=== PATIENT | male | born 1955 | race Caucasian/White ===

== ENCOUNTER 2018-12-05 20:54 | Inpatient (IN) | payer OTHER, MEDICAID ==
[~2018-12-05] VITALS: Ht 185.4 cm; Wt 127.0 kg
[2018-12-05 20:55] VITALS: BP 157/68
[2018-12-05 22:28] LABS: BASOPHILS # (AUTO) 0.1 K/uL (0.00-0.22); BASOPHILS % (AUTO) 1.3 % (0.0-2.0); EOSINOPHILS # (AUTO) 0.3 K/uL (0-0.4); EOSINOPHILS % (AUTO) 5.6 % (0.0-4.0); LYMPHOCYTES # (AUTO) 0.6 K/uL (2.0-11.5); LYMPHOCYTES % (AUTO) 10.3 % (20.5-51.1); MEAN CORPUSCULAR HEMOGLOBIN 26 pg (27-31); MEAN CORPUSCULAR HGB CONC 32 g/dL (33-37); MEAN CORPUSCULAR VOLUME 81.3 fL (80-94); MONOCYTES # (AUTO) 0.6 K/uL (0.8-1.0); MONOCYTES % (AUTO) 9.6 % (1.7-9.3); NEUTROPHILS # (AUTO) 4.3 K/uL (1.8-7.7); NEUTROPHILS % (AUTO) 73.2 % (42.2-75.2); PLATELET COUNT (AUTO) 220 K/uL (140-450); RED BLOOD CELL COUNT(AUTO) 3.07 MIL/uL (4.20-6.10); RED CELL DISTRIBUTION WIDTH 17.7 % (11.6-13.7); WHITE BLOOD COUNT (AUTO) 5.8 K/uL (4.8-10.8)
[2018-12-05 22:40] LABS: ANION GAP 5.9 (8-16); CARBON DIOXIDE 35.1 mmol/L (21-32); CREATININE 2.2 mg/dL (0.7-1.3)
[2018-12-05 22:43] LABS: APPEARANCE,URINE CLEAR (CLEAR); BILIRUBIN,URINE NEGATIVE (NEGATIVE); BLOOD, URINE 2+ (NEGATIVE); COLOR,URINE YELLOW (YELLOW); LEUKOCYTE ESTERASE ,URINE NEGATIVE (NEGATIVE); NITRITE, URINE NEGATIVE (NEGATIVE); UGLUCOSE 1+ (NEGATIVE)
[2018-12-05 22:46] LABS: ALBUMIN 2.4 g/dL (3.4-5.0); TOTAL BILIRUBIN 0.4 mg/dL (0.0-1.0)
[2018-12-05 23:26] LABS: RBC,URINE 20-50 /HPF (0-5)
[2018-12-05 23:28] LABS: FINE GRANULAR CASTS,URINE 0-10 /LPF (None Seen)
[2018-12-06] MEDS ORDERED: ALBUTEROL SULFATE/IPRATROPIU 3 ML SOL IH PRN (00:15)
[2018-12-06] MEDS ORDERED: ONDANSETRON 4 MG/2 ML VIAL IM/IVP PRN (00:20)
[2018-12-06] MEDS ORDERED: ACETAMINOPHEN 325 MG TAB PO PRN ×2 (00:20→02:35)
[2018-12-06] MEDS ORDERED: HYDROcodone/APAP 5/325 MG 1 TAB TAB PO PRN (00:20)
[2018-12-06] MEDS ORDERED: FAMOTIDINE 20 MG/2 ML VIAL IV PRN (00:20)
[2018-12-06] MEDS ORDERED: DOCUSATE SODIUM 100 MG GELCAP PO PRN (00:20)
[2018-12-06] MEDS ORDERED: FUROSEMIDE 40 MG/4 ML VIAL IVP SCH (01:00)
[2018-12-06] MEDS: PIPERACILLIN/TAZOBACTAM 3.375 GM in DEXTROSE 5% 50 ML IV SCH ×2 (01:37→06:55)
[2018-12-06] MEDS ORDERED: PIPERACILLIN/TAZOBACTAM 3.375 GM VIAL IV ONE ×2 (01:41→07:05)
[2018-12-06 01:46] LABS: PROTHROMBIN TIME 10.5 secs (10.8-13.4)
[2018-12-06 01:56] LABS: CHOL/HDL RATIO 3.8 (1-4.5); FREE T4 (FREE THYROXINE) 1.01 ng/dL (0.76-1.46); MAGNESIUM 1.9 mg/dL (1.8-2.4); PHOSPHORUS 3.5 mg/dL (2.5-4.9); THYROID STIMULATING HORMONE 9.26 uIU/mL (0.34-3.74)
[2018-12-06 02:00] VITALS: BP 151/71
[2018-12-06] MEDS ORDERED: BISA-246 RC (02:24)
[2018-12-06] MEDS ORDERED: ACET-2619 PO (02:24)
[2018-12-06] MEDS ORDERED: ALBU3SOL83 IH (02:24)
[2018-12-06] MEDS ORDERED: GLUC1VIA4 IM (02:24)
[2018-12-06] MEDS ORDERED: GABA300C PO (02:24)
[2018-12-06] MEDS ORDERED: ENAL-197 PO (02:24)
[2018-12-06] MEDS ORDERED: LORA-476 PO (02:24)
[2018-12-06] MEDS ORDERED: LACT10SO1 PO (02:24)
[2018-12-06] MEDS ORDERED: VITD1000 PO (02:24)
[2018-12-06] MEDS ORDERED: HYDR-1098 PO (02:24)
[2018-12-06] MEDS ORDERED: CARV12.5 PO (02:24)
[2018-12-06] MEDS ORDERED: MELA5TAB6 PO (02:24)
[2018-12-06] MEDS ORDERED: PAX10 PO (02:24)
[2018-12-06] MEDS ORDERED: FERR325E14 PO (02:24)
[2018-12-06] MEDS ORDERED: ASPI-1718 PO (02:24)
[2018-12-06] MEDS ORDERED: LOSA25TA43 PO (02:24)
[2018-12-06] MEDS ORDERED: TRAM50TA1 PO (02:24)
[2018-12-06] MEDS ORDERED: BUME1TAB92 PO (02:24)
[2018-12-06] MEDS ORDERED: DOCU-299 PO (02:24)
[2018-12-06] MEDS: NACL 0.9% 1,000 ML IV SCH ×2 (02:33→23:42)
[2018-12-06] MEDS ORDERED: BISACODYL 10 MG SUPP RC PRN (02:35)
[2018-12-06] MEDS ORDERED: MELATONIN 3 MG TAB PO PRN (02:35)
[2018-12-06] MEDS ORDERED: traMADol 50 MG TAB PO PRN (02:35)
[2018-12-06] MEDS ORDERED: LORazepam 1 MG TAB PO PRN (02:35)
[2018-12-06] MEDS ORDERED: LACTULOSE 20 GM/30 ML UDC PO PRN (02:35)
[2018-12-06] MEDS ORDERED: DEXTROSE 50% 50 ML SYR IVP PRN (03:00)
[2018-12-06] MEDS ORDERED: GLUCAGON 1 MG VIAL IVP PRN (03:00)
[2018-12-06] MEDS ORDERED: methylPREDNISolone SS 125 MG/2 ML VIAL IVP SCH (03:15)
[2018-12-06] MEDS ORDERED: MEDICATION REC. PHARMACY CONS. 1 EA MISC MC PRN (03:35)
[2018-12-06 04:00] VITALS: BP 174/77
[2018-12-06 05:22] LABS: BASOPHILS % (AUTO) 0.6 % (0.0-2.0); EOSINOPHILS # (AUTO) 0.2 K/uL (0-0.4); EOSINOPHILS % (AUTO) 4.6 % (0.0-4.0); HEMATOCRIT 24.1 % (36-52); HEMOGLOBIN 7.7 g/dL (12.0-18.0); LYMPHOCYTES # (AUTO) 0.7 K/uL (2.0-11.5); LYMPHOCYTES % (AUTO) 15.2 % (20.5-51.1); MEAN CORPUSCULAR HEMOGLOBIN 26 pg (27-31); MEAN CORPUSCULAR HGB CONC 32 g/dL (33-37); MEAN CORPUSCULAR VOLUME 81.2 fL (80-94); MONOCYTES # (AUTO) 0.5 K/uL (0.8-1.0); NEUTROPHILS # (AUTO) 3.4 K/uL (1.8-7.7); NEUTROPHILS % (AUTO) 68.6 % (42.2-75.2); PLATELET COUNT (AUTO) 207 K/uL (140-450); RED BLOOD CELL COUNT(AUTO) 2.96 MIL/uL (4.20-6.10); RED CELL DISTRIBUTION WIDTH 18.4 % (11.6-13.7); WHITE BLOOD COUNT (AUTO) 4.9 K/uL (4.8-10.8)
[2018-12-06] MEDS: hydrALAZINE 20 MG/ML VIAL IVP PRN ×2 (05:39→13:41)
[2018-12-06] MEDS: ALBUTEROL SULFATE/IPRATROPIU 3 ML SOL IH SCH ×3 (06:41→19:25)
[2018-12-06 07:00] LABS: ANION GAP 6.7 (8-16); CARBON DIOXIDE 36.3 mmol/L (21-32); CREATININE 2.2 mg/dL (0.7-1.3)
[2018-12-06] MEDS: BLOOD GLUCOSE MONITORING 1 DEV DEV FS SCH ×4 (07:43→20:39)
[2018-12-06 08:00] VITALS: BP 149/80
[2018-12-06] MEDS: PARoxetine 10 MG TAB PO SCH (09:42)
[2018-12-06] MEDS: CHOLECALCIFEROL 1,000 IU TAB PO SCH (09:42)
[2018-12-06] MEDS: LACTOBACILLUS RHAMNOSUS GG 1 EACH CAP PO SCH (09:42)
[2018-12-06] MEDS: BUMETANIDE 1 MG TAB PO SCH ×2 (09:43→20:35)
[2018-12-06] MEDS: FERROUS SULFATE 325 MG TABEC PO SCH ×3 (09:43→16:53)
[2018-12-06] MEDS: CARVEDILOL 12.5 MG TAB PO SCH ×2 (09:44→20:36)
[2018-12-06] MEDS: DOCUSATE SODIUM 100 MG GELCAP PO SCH ×2 (09:44→20:42)
[2018-12-06] MEDS: methylPREDNISolone SS 40 MG/ML VIAL IVP SCH (10:30)
[2018-12-06 12:00] VITALS: BP 175/71
[2018-12-06] MEDS: BUDESONIDE 0.5 MG/2 ML NEBU INH SCH ×2 (13:00→19:27)
[2018-12-06] MEDS: INSULIN LISPRO SLIDING SCALE 100 UNITS/ML VIAL SUBQ PRN ×3 (13:06→20:40)
[2018-12-06 16:00] VITALS: BP 165/74
[2018-12-06] MEDS ORDERED: FUROSEMIDE 100 MG in DEXTROSE 5% 100 ML IV SCH ×2 (17:30→21:30)
[2018-12-06 20:00] VITALS: BP 145/51
[2018-12-06] MEDS: GABAPENTIN 300 MG CAP PO SCH (20:36)
[2018-12-06] MEDS: LORazepam 2 MG/ML VIAL IM/IVP PRN (20:50)
[2018-12-07 00:40] VITALS: BP 142/63
[2018-12-07] MEDS ORDERED: FUROSEMIDE 100 MG/10 ML VIAL ONE (01:15)
[2018-12-07 04:00] VITALS: BP 127/59
[2018-12-07] MEDS: BLOOD GLUCOSE MONITORING 1 DEV DEV FS SCH ×4 (05:28→20:16)
[2018-12-07 05:45] LABS: BASOPHILS % (AUTO) 0.1 % (0.0-2.0); HEMATOCRIT 23.4 % (36-52); HEMOGLOBIN 7.4 g/dL (12.0-18.0); LYMPHOCYTES # (AUTO) 0.6 K/uL (2.0-11.5); LYMPHOCYTES % (AUTO) 10.3 % (20.5-51.1); MEAN CORPUSCULAR HEMOGLOBIN 26 pg (27-31); MEAN CORPUSCULAR HGB CONC 32 g/dL (33-37); MEAN CORPUSCULAR VOLUME 81.3 fL (80-94); MONOCYTES # (AUTO) 0.7 K/uL (0.8-1.0); MONOCYTES % (AUTO) 12.1 % (1.7-9.3); NEUTROPHILS # (AUTO) 4.4 K/uL (1.8-7.7); NEUTROPHILS % (AUTO) 77.5 % (42.2-75.2); PLATELET COUNT (AUTO) 214 K/uL (140-450); RED BLOOD CELL COUNT(AUTO) 2.88 MIL/uL (4.20-6.10); RED CELL DISTRIBUTION WIDTH 18.9 % (11.6-13.7); WHITE BLOOD COUNT (AUTO) 5.7 K/uL (4.8-10.8)
[2018-12-07 06:00] LABS: ANION GAP 5.8 (8-16); CARBON DIOXIDE 33.9 mmol/L (21-32); CREATININE 2.3 mg/dL (0.7-1.3); POTASSIUM 3.7 mmol/L (3.5-5.1)
[2018-12-07] MEDS: ALBUTEROL SULFATE/IPRATROPIU 3 ML SOL IH SCH ×3 (06:00→19:15)
[2018-12-07 06:14] LABS: MAGNESIUM 1.9 mg/dL (1.8-2.4); PHOSPHORUS 4.5 mg/dL (2.5-4.9)
[2018-12-07] MEDS: INSULIN LISPRO SLIDING SCALE 100 UNITS/ML VIAL SUBQ PRN ×4 (06:20→20:22)
[2018-12-07] MEDS: BUDESONIDE 0.5 MG/2 ML NEBU INH SCH ×2 (06:43→19:19)
[2018-12-07 08:00] VITALS: BP 125/68
[2018-12-07] MEDS: BUMETANIDE 1 MG TAB PO SCH (10:17)
[2018-12-07] MEDS: DOCUSATE SODIUM 100 MG GELCAP PO SCH ×2 (10:20→20:20)
[2018-12-07] MEDS: LACTOBACILLUS RHAMNOSUS GG 1 EACH CAP PO SCH (10:21)
[2018-12-07] MEDS: CARVEDILOL 12.5 MG TAB PO SCH ×2 (10:21→20:12)
[2018-12-07] MEDS: FERROUS SULFATE 325 MG TABEC PO SCH ×4 (10:22→17:49)
[2018-12-07] MEDS: PARoxetine 10 MG TAB PO SCH (10:23)
[2018-12-07] MEDS: CHOLECALCIFEROL 1,000 IU TAB PO SCH (10:24)
[2018-12-07] MEDS: methylPREDNISolone SS 40 MG/ML VIAL IVP SCH (11:01)
[2018-12-07 12:00] VITALS: BP 104/58
[2018-12-07] MEDS ORDERED: IRON SUCROSE COMPLEX 100 MG/5 ML VIAL IVP SCH ×2 (12:05→18:00)
[2018-12-07 16:00] VITALS: BP 154/76
[2018-12-07 20:00] VITALS: BP 153/75
[2018-12-07] MEDS ORDERED: METOLAZONE 5 MG TAB PO SCH (20:00)
[2018-12-07] MEDS: GABAPENTIN 300 MG CAP PO SCH (20:12)
[2018-12-07] MEDS: LORazepam 2 MG/ML VIAL IM/IVP PRN (20:21)
[2018-12-08] VITALS: BP 140/82
[2018-12-08] MEDS: NACL 0.9% 1,000 ML IV SCH (01:17)
[2018-12-08 04:00] VITALS: BP 118/74
[2018-12-08] MEDS: BLOOD GLUCOSE MONITORING 1 DEV DEV FS SCH ×2 (04:59→11:41)
[2018-12-08] MEDS: INSULIN LISPRO SLIDING SCALE 100 UNITS/ML VIAL SUBQ PRN ×2 (05:41→12:36)
[2018-12-08] MEDS: ALBUTEROL SULFATE/IPRATROPIU 3 ML SOL IH SCH (06:29)
[2018-12-08] MEDS: BUDESONIDE 0.5 MG/2 ML NEBU INH SCH (06:39)
[2018-12-08 07:50] LABS: BASOPHILS % (AUTO) 0.1 % (0.0-2.0); HEMATOCRIT 23.5 % (36-52); HEMOGLOBIN 7.5 g/dL (12.0-18.0); LYMPHOCYTES # (AUTO) 0.7 K/uL (2.0-11.5); LYMPHOCYTES % (AUTO) 11.1 % (20.5-51.1); MEAN CORPUSCULAR HEMOGLOBIN 26 pg (27-31); MEAN CORPUSCULAR HGB CONC 32 g/dL (33-37); MEAN CORPUSCULAR VOLUME 81.8 fL (80-94); MONOCYTES # (AUTO) 0.5 K/uL (0.8-1.0); MONOCYTES % (AUTO) 7.8 % (1.7-9.3); PLATELET COUNT (AUTO) 209 K/uL (140-450); RED BLOOD CELL COUNT(AUTO) 2.88 MIL/uL (4.20-6.10); WHITE BLOOD COUNT (AUTO) 6.2 K/uL (4.8-10.8)
[2018-12-08 07:58] VITALS: BP 139/72
[2018-12-08] MEDS ORDERED: ALBUTEROL SULFATE/IPRATROPIU 3 ML SOL IH SCH (08:29)
[2018-12-08] MEDS: DOCUSATE SODIUM 100 MG GELCAP PO SCH (08:33)
[2018-12-08] MEDS: LACTOBACILLUS RHAMNOSUS GG 1 EACH CAP PO SCH (08:33)
[2018-12-08] MEDS: CARVEDILOL 12.5 MG TAB PO SCH (08:33)
[2018-12-08] MEDS: CHOLECALCIFEROL 1,000 IU TAB PO SCH (08:34)
[2018-12-08] MEDS: FERROUS SULFATE 325 MG TABEC PO SCH ×3 (08:34→09:29)
[2018-12-08] MEDS: PARoxetine 10 MG TAB PO SCH (08:35)
[2018-12-08] MEDS ORDERED: METOLAZONE 5 MG TAB PO SCH (09:00)
[2018-12-08 09:36] LABS: MAGNESIUM 1.9 mg/dL (1.8-2.4); PHOSPHORUS 5.1 mg/dL (2.5-4.9)
[2018-12-08 09:38] LABS: CARBON DIOXIDE 33.7 mmol/L (21-32); POTASSIUM 3.7 mmol/L (3.5-5.1)
[2018-12-08 09:40] LABS: CREATININE 2.5 mg/dL (0.7-1.3)
[2018-12-08] MEDS: methylPREDNISolone SS 40 MG/ML VIAL IVP SCH (10:38)
[2018-12-08 12:00] VITALS: BP 147/64
[2018-12-08] MEDS ORDERED: PRED10TA5 PO (13:39)
[2018-12-08] MEDS ORDERED: FURO-572 PO (13:39)
== END 2018-12-08 15:06 | DRG 189 ==
LOC: MED 20:54 → MTU 12-06 00:10
PROVIDERS: ADMIT Family Medicine; ATTEND Family Medicine
PROC: 5A09357 Assistance with Respiratory Ventilation, Less than 24 Consecutive Hours, Continuous Positive Airway Pressure (ICD-10-PCS; principal; 2018-12-06)
DX: J96.02 Acute respiratory failure with hypercapnia (principal); N17.0 Acute kidney failure with tubular necrosis; E43 Unspecified severe protein-calorie malnutrition; I50.43 Acute on chronic combined systolic (congestive) and diastolic (congestive) heart failure; I13.0 Hypertensive heart and chronic kidney disease with heart failure and stage 1 through stage 4 chronic kidney disease, or unspecified chronic kidney disease; J44.1 Chronic obstructive pulmonary disease with (acute) exacerbation; I69.354 Hemiplegia and hemiparesis following cerebral infarction affecting left non-dominant side; N18.4 Chronic kidney disease, stage 4 (severe); E11.22 Type 2 diabetes mellitus with diabetic chronic kidney disease; E11.42 Type 2 diabetes mellitus with diabetic polyneuropathy; F32.9 Major depressive disorder, single episode, unspecified; F41.9 Anxiety disorder, unspecified; E11.65 Type 2 diabetes mellitus with hyperglycemia; G47.00 Insomnia, unspecified; D63.8 Anemia in other chronic diseases classified elsewhere; Z87.891 Personal history of nicotine dependence; Z79.899 Other long term (current) drug therapy; Z68.36 Body mass index [BMI] 36.0-36.9, adult
CPT/HCPCS: 36415; 36600; 70450; 71045; 76604; 76770; 80048; 80053; 81001; 82140; 82150; 82550; 82728; 82803; 82948; 83036; 83540; 83605; 83615; 83690; 83735; 83880; 84100; 84439; 84443; 84484; 85025; 85610; 85730; 87040; 87081; 87086; 87186; 93005; 93970; 94640; 94660; 96374; 99285; J0360; J1644; J1756; J1940; J2060; J2543; J2920; J2930; J7030; J7060; J7620; J7626; Q0092

== ENCOUNTER 2019-02-25 21:05 | Emergency (ER) | payer OTHER, MEDICAID ==
[~2019-02-25] VITALS: Ht 188 cm; Wt 107.0 kg
[2019-02-25 21:05] VITALS: BP 206/122
[~2019-02-25 21:05] MED LIST: ACET-2619 PO; ALBU3SOL83 IH; ASPI-1718 PO; BISA-246 RC; BUME1TAB92 PO; CARV12.5 PO; DOCU-299 PO; ENAL-197 PO; FERR325E14 PO; FURO-572 PO; GABA300C PO; GLUC1VIA4 IM; HYDR-1098 PO; LACT10SO1 PO; LORA-476 PO; LOSA25TA43 PO; MELA5TAB6 PO; NALOXONE PFS 2 MG/2 ML SYR ONE; PAX10 PO; PRED10TA5 PO; TRAM50TA1 PO; VITD1000 PO
--- NOTE | 2019-02-25 21:05 | NUR ---
PT REINALDO ALS. TAKEN TO BED 5
--- NOTE | 2019-02-25 21:05 | NUR ---
Dr. Paul examining patient
--- NOTE | 2019-02-25 21:05 | NUR ---
Respiratory Therapist at bedside for respiratory intervention.
[2019-02-25] MEDS ORDERED: ALBUTEROL SULFATE/IPRATROPIU 3 ML SOL IH ONE (21:10)
--- NOTE | 2019-02-25 21:12 | NUR ---
Dr. Paul at patient bedside for procedure
--- NOTE | 2019-02-25 21:13 | NUR ---
PT FRANKLINCecilio FROM [facility]. EMS WAS CALLED OUT FOR CARDIAC ARREST. WHEN EMS ARRIVED, FACILITY STATE THEY WERE ABLE TO GET PULSES BACK. PT WAS LAYING FLAT ON GROUND AND HAD NRB AT 15 LPM. [facility]. PARAMEDICS STATE PT WAS HYPERTENSIVE AND HEARD COURSE CRACKLES THOUGHOUT. PT WAS GIVEN 2 ROUND OF NITRO AND BREATHING TREATMENT ON C-PAP. EMS STATE PT WAS ALTERED WITH A GCS OF 3. UPON ARRIVAL PT STILL GCS 3 WITH NO STIMULI TO PAIN. DR. GOMEZ AT BEDSIDE, RT NURSE AND TECH AT BEDSIDE. PT LUNGS SOUND COURSE CRACKLES THROUGHOUT. PT PUPILS NON RACTIVE TO LIGHT. PT DOES NOT HAVE A GAG REFLEX. PT VITALS 64HR, 206/122, 100% ON C-PAP. RT SET UP FOR INTUBATION, PT GIVEN ETOMIDATE AND SUCC. DR. GOMEZ PERFORMED INTUBATION. PT PLACED ON VENT. AMES CATHETER INSERTED.
--- NOTE | 2019-02-25 21:46 | NUR ---
PT TAKEN TO CT
[2019-02-25 21:51] LABS: BASOPHILS % (AUTO) 0.8 % (0.0-2.0); EOSINOPHILS # (AUTO) 0.3 K/uL (0-0.4); EOSINOPHILS % (AUTO) 5.7 % (0.0-4.0); HEMATOCRIT 38.9 % (36-52); HEMOGLOBIN 11.9 g/dL (12.0-18.0); LYMPHOCYTES # (AUTO) 0.3 K/uL (2.0-11.5); LYMPHOCYTES % (AUTO) 6.4 % (20.5-51.1); MEAN CORPUSCULAR HEMOGLOBIN 26 pg (27-31); MEAN CORPUSCULAR HGB CONC 31 g/dL (33-37); MEAN CORPUSCULAR VOLUME 86.2 fL (80-94); MONOCYTES # (AUTO) 0.4 K/uL (0.8-1.0); MONOCYTES % (AUTO) 7.7 % (1.7-9.3); NEUTROPHILS # (AUTO) 4.2 K/uL (1.8-7.7); NEUTROPHILS % (AUTO) 79.4 % (42.2-75.2); PLATELET COUNT (AUTO) 188 K/uL (140-450); RED BLOOD CELL COUNT(AUTO) 4.51 MIL/uL (4.20-6.10); RED CELL DISTRIBUTION WIDTH 18.4 % (11.6-13.7); WHITE BLOOD COUNT (AUTO) 5.3 K/uL (4.8-10.8)
[2019-02-25] MEDS ORDERED: OSMITROL 25% 12.5 GM/50 ML VIAL IV ONE ×5 (22:00→22:38)
[2019-02-25] MEDS ORDERED: NITROGLYCERIN 50 MG/D5W PREMIX 250 ML IV ONE (22:00)
--- NOTE | 2019-02-25 22:01 | NUR ---
PT RETURN FROM CT
--- NOTE | 2019-02-25 22:01 | NUR ---
PT BIBA ALTERED. PT PLACE ON BIPAP BY RT LENORA WITH MD GOMEZ'S SETTINGS. PATIENT ALTERED. MD GOMEZ INTUBATED PT WITH 8.0 ETT CONFIRMED TUBE PLACEMENT BY CO2 DETECTOR AND BREATH SOUNDS. PT SETTINGS CHARTED. SPUTUM SAMPLE COLLECTED BY RT LENORA AND SENT TO LAB. ETT IN PLACE AND SECURED WITH ANCHOR-FAST. RT LENORA TOOK PT TO CT SCAN AND BACK WITH NO INCIDENT. WILL CONTINUE TO MONITOR.
[2019-02-25 22:06] LABS: PROTHROMBIN TIME 10.5 secs (10.8-13.4)
--- NOTE | 2019-02-25 22:07 | NUR ---
Dr. Paul with patient family at bedside.
--- NOTE | 2019-02-25 22:28 | NUR ---
EKG PERFORMED AT BEDSIDE
[2019-02-25 22:30] LABS: ALBUMIN 2.2 g/dL (3.4-5.0); ANION GAP 13.4 (8-16); CARBON DIOXIDE 28.5 mmol/L (21-32); CREATININE 2.7 mg/dL (0.7-1.3); POTASSIUM 4.9 mmol/L (3.5-5.1); TOTAL BILIRUBIN 0.5 mg/dL (0.0-1.0)
--- NOTE | 2019-02-25 22:43 | NUR ---
Dr. Paul at bedside for procedure
[2019-02-25 22:48] LABS: APPEARANCE,URINE SL CLOUDY (CLEAR); BILIRUBIN,URINE NEGATIVE (NEGATIVE); BLOOD, URINE 3+ (NEGATIVE); COLOR,URINE YELLOW (YELLOW); LEUKOCYTE ESTERASE ,URINE NEGATIVE (NEGATIVE); NITRITE, URINE NEGATIVE (NEGATIVE); PH,URINE 6.5 (5.0-9.0); UGLUCOSE 1+ (NEGATIVE)
--- NOTE | 2019-02-25 23:10 | NUR ---
CT RESULTS SHOW MIDLINE SHIFT, DR NIELSEN ORDERED MANITOL
--- NOTE | 2019-02-25 23:13 | NUR ---
X-Ray at bedside.
[2019-02-25 23:24] LABS: RBC,URINE 50-80 /HPF (0-5); WBC,URINE 0-5 /HPF (0-5)
[2019-02-25] MEDS ORDERED: ETOMIDATE 20 MG/10 ML VIAL IVP ONE (23:35)
[2019-02-25] MEDS ORDERED: SUCCINYLCHOLINE CHLORIDE 200 MG/10 ML VIAL IVP ONE (23:35)
--- NOTE | 2019-02-25 23:45 | NUR ---
X-Ray at bedside.
[2019-02-26] MEDS ORDERED: hydrALAZINE 20 MG/ML VIAL IVP STA (00:05)
--- NOTE | 2019-02-26 00:06 | NUR ---
[facility] CALLED FOR TRANSPORT TO TAFT ER. ETA 30 MINUTES.
--- NOTE | 2019-02-26 00:35 | NUR ---
BP RESPONDING TO HYDRALIZINE, NITRO DRIP DECREASED TO 30MCG/MIN
--- NOTE | 2019-02-26 00:39 | NUR ---
BP CONTINUE TO LOWER. PT NITRO DECREASED TO 20 MCG/MIN
--- NOTE | 2019-02-26 00:49 | NUR ---
[facility] AT BEDSIDE
--- NOTE | 2019-02-26 00:55 | NUR ---
Patient to be transferred to [facility]. Is being transferred due to HIGHER LEVEL OF CARE. Receiving facility has accepting physician and available space. ER physician has signed transfer form. Patient or responsible libertarian has agreed to transfer and signed form. Patient belongings inventoried and will be sent with patient. Copy of nursing notes, lab reports, EKG, Physicians Orders and X-rays to be sent with patient. Report called to SUMA VIZCAINO at receiving facility. [address] [facility] ambulance service has been called for transfer. [facility] GIVEN REPORT ALLOWED TIME TO ASK QUESTIONS. NO QUESTIONS
[2019-02-26 01:12] VITALS: BP 126/65
--- NOTE | 2019-02-26 13:56 | NUR ---
Late entry. COnfirmed with RN that Tridil infusion continued until transfer at 0055.
--- NOTE | 2019-02-26 14:23 | NUR ---
Mannitol was completed prior to transfer at 0055
== END 2019-02-26 00:55 | disposition short-term general hospital (02) ==
LOC: MED 21:05
DX: I62.9 Nontraumatic intracranial hemorrhage, unspecified (principal); I61.5 Nontraumatic intracerebral hemorrhage, intraventricular; E11.22 Type 2 diabetes mellitus with diabetic chronic kidney disease; I13.0 Hypertensive heart and chronic kidney disease with heart failure and stage 1 through stage 4 chronic kidney disease, or unspecified chronic kidney disease; N18.4 Chronic kidney disease, stage 4 (severe); I50.9 Heart failure, unspecified; R41.82 Altered mental status, unspecified; F03.90 Unspecified dementia, unspecified severity, without behavioral disturbance, psychotic disturbance, mood disturbance, and anxiety; F41.9 Anxiety disorder, unspecified; G47.00 Insomnia, unspecified; Z86.73 Personal history of transient ischemic attack (TIA), and cerebral infarction without residual deficits; Z79.899 Other long term (current) drug therapy; Z79.891 Long term (current) use of opiate analgesic; Z79.82 Long term (current) use of aspirin
CPT/HCPCS: 31500; 36415; 36556; 36600; 51702; 70450; 71045; 80053; 81001; 82803; 83605; 83690; 83880; 84484; 85025; 85610; 85730; 87040; 87086; 89220; 93005; 94640; 94760; 96365; 96366; 96375; 99291; 99292; J0360; J2150; J2310; J3490; J7620; 96368; 96374